=== PATIENT | female | born 1960 | race Two or more races ===

== ENCOUNTER 2017-08-24 11:55 | Emergency (ER) | payer MEDICAID ==
[~2017-08-24] VITALS: Ht 165.1 cm; Wt 68.0 kg
--- NOTE | 2017-08-24 12:30 | NUR ---
BIB SELF C/O R HAND PAIN AND SWELLING S/P TRIPPED AND FELL, AAOOX4, NAD NOTED, VSS, WAITING FOR MD SINGH.
[2017-08-24] MEDS ORDERED: IBUPROFEN 600 MG TABLET PO ONE ×2 (14:15→14:30)
[2017-08-24 14:18] VITALS: BP 122/70
--- NOTE | 2017-08-24 14:19 | NUR ---
Patient discharged to home in stable condition. Written and verbal after care instructions given. Patient verbalizes understanding of instruction. Prescription given
[2017-08-24] MEDS ORDERED: IBUPROFEN 400 MG TABLET PO ONE (16:00)
== END 2017-08-24 14:34 | disposition home or self-care (01) ==
LOC: ER 11:59
DX: S62.326A Displaced fracture of shaft of fifth metacarpal bone, right hand, initial encounter for closed fracture (principal); W01.0XXA Fall on same level from slipping, tripping and stumbling without subsequent striking against object, initial encounter; Y93.89 Activity, other specified; Y92.89 Other specified places as the place of occurrence of the external cause; Y99.9 Unspecified external cause status
CPT/HCPCS: 73130-TC; A4606; Z7610

== ENCOUNTER 2021-12-11 14:27 | Emergency (ER) | payer MEDICAID, OTHER ==
[~2021-12-11] VITALS: Ht 170.2 cm; Wt 57.6 kg
--- NOTE | 2021-12-11 14:40 | NUR ---
BIB RA102 C/O DIZZINESS AND HEAD INJURY S/P GLF LAST NIGHT. AAOX4, BREATHING EVEN AND UNLABORED, SKIN WARM AND DRY. ASSISTED TO ER BED 12, ON MONITOR. VS STABLE
[2021-12-11] MEDS ORDERED: ONDANSETRON HCL/PF 4 MG/2 ML VIAL ONE (15:13)
[2021-12-11] MEDS ORDERED: diphenhydrAMINE HCL ELIX 25 MG/10 ML UDC ONE (15:13)
[2021-12-11] MEDS ORDERED: MECLIZINE HCL 25 MG TABLET ONE (15:14)
[2021-12-11] MEDS ORDERED: diphenhydrAMINE HCL 50 MG/ML VIAL ONE (15:18)
--- NOTE | 2021-12-11 15:25 | NUR ---
PT TAKEN TO CT
--- NOTE | 2021-12-11 15:35 | NUR ---
BACK FOM CT, ON MONITOR, VS STABLE
[2021-12-11] MEDS: IV NS 0.9% 1,000 ML BAG IV ONE (15:40)
[2021-12-11] MEDS: MECLIZINE HCL 12.5 MG TABLET PO ONE (15:53)
[2021-12-11] MEDS: ONDANSETRON HCL/PF 4 MG/2 ML VIAL IVP ONE (15:53)
[2021-12-11] MEDS: diphenhydrAMINE HCL 50 MG/ML VIAL IV ONE (15:53)
[2021-12-11] MEDS ORDERED: DIAZEPAM 5 MG TABLET ONE (16:09)
[2021-12-11] MEDS ORDERED: DIAZEPAM 5 MG/ML 2 ML DISP.SYRIN ONE (16:11)
[2021-12-11] MEDS: DIAZEPAM 5 MG/ML 2 ML DISP.SYRIN IV ONE (16:19)
--- NOTE | 2021-12-11 16:21 | NUR ---
PT LAYING IN BED COMFORTABLY. VS STABLE. WILL CONTINUE TO MONITOR
[2021-12-11 16:37] LABS: BASOPHILS % (AUTO) 0.2 % (0.0-2.0); EOSINOPHILS % (AUTO) 1.1 % (0.0-6.0); HEMATOCRIT 39 % (33-45); HEMOGLOBIN 12.8 g/dL (11.5-14.8); LYMPHOCYTES # (AUTO) 1.6 K/uL (0.8-4.8); LYMPHOCYTES % (AUTO) 30.8 % (20.0-44.0); MEAN CORPUSCULAR HGB CONC 33 g/dl (31.0-36.0); MEAN CORPUSCULAR VOLUME 97 fL (82-100); MONOCYTES # (AUTO) 0.6 K/uL (0.1-1.30); MONOCYTES % (AUTO) 12.2 % (2.0-12.0); NEUTROPHILS # (AUTO) 2.8 K/uL (1.8-8.9); NEUTROPHILS % (AUTO) 55.7 % (43.0-81.0); PLATELET COUNT (AUTO) 186 K/uL (150-450); RED BLOOD CELL COUNT(AUTO) 3.99 MIL/uL (4.0-5.2)
[2021-12-11 16:59] LABS: CALCIUM, SERUM 8.6 mg/dL (8.5-10.1); CARBON DIOXIDE 22 mmol/L (21-32); CHLORIDE 106 mmol/L (98-107); CREATININE 0.6 mg/dL (0.6-1.3); GLUCOSE 86 mg/dL (74-106); POTASSIUM 3.6 mmol/L (3.5-5.1); SODIUM SERUM 143 mmol/L (136-145); UREA NITROGEN, BLOOD 16 mg/dL (7-18)
[2021-12-11 17:14] LABS: ALANINE AMINOTRANSFERASE 69 U/L (12-78); ALKALINE PHOSPHATASE 74 U/L (46-116); ASPARTATE AMINOTRANSFERASE 52 U/L (15-37); BILIRUBIN,DIRECT 0.1 mg/dL (0.0-0.2); BILIRUBIN,TOTAL 0.2 mg/dL (0.2-1.0); TOTAL PROTEIN, SERUM 6.4 g/dL (6.4-8.2)
--- NOTE | 2021-12-11 17:17 | NUR ---
PT LAYING COMFORTABLY IN BED, SPOKE TO ON PHONE
[2021-12-11] MEDS ORDERED: MECL-159 PO (17:29)
[2021-12-11] MEDS ORDERED: ONDA4TAB5 PO (17:29)
[2021-12-11] MEDS ORDERED: DIAZ5TAB PO (17:29)
--- NOTE | 2021-12-11 18:20 | NUR ---
IV removed. Catheter intact and site benign. Pressure and 4x4 applied to site. No bleeding noted.
--- NOTE | 2021-12-11 18:20 | NUR ---
Patient discharged to home in stable condition. Written and verbal after care instructions given. Patient verbalizes understanding of instruction.
[2021-12-11 18:23] VITALS: BP 130/81
== END 2021-12-11 18:23 | disposition home or self-care (01) ==
LOC: ER 14:34
DX: S00.11XA Contusion of right eyelid and periocular area, initial encounter (principal); R42 Dizziness and giddiness; I10 Essential (primary) hypertension; W18.39XA Other fall on same level, initial encounter; Y93.89 Activity, other specified; Y92.89 Other specified places as the place of occurrence of the external cause; Y99.8 Other external cause status
CPT/HCPCS: 36415; 70450; 71045; 80048; 80076; 84484; 85025; 96361; 96374; 96375; 99285; J1200; J2405; J3360; J7030; J8597; Q0163

== ENCOUNTER → 2022-11-18 | Emergency (ER) | payer OTHER ==
[~2022-11-18] VITALS: Ht 170.2 cm; Wt 59.0 kg
[~2022-11-18] MED LIST: DIAZ5TAB PO; MECL-159 PO; MORPHINE SULFATE INJ 2 MG/ML DISP.SYRIN IV ONE; MORPHINE SULFATE INJ 2 MG/ML DISP.SYRIN ONE; ONDA4TAB5 PO
[2022-11-18 00:24] VITALS: BP 119/76
--- NOTE | 2022-11-18 00:35 | NUR ---
[id number] C/O RIGHT ARM PAIN S/P FRACTURE ABOUT A WEEK AGO. PT ON SHOULDER IMMOBILIZER, AO X 4, SURINAMESE SPEAKING, FAMILY AT BEDSIDE. SEEN AND EXAMINED BY DR RAWLS, AWAITING ORDERS.
--- NOTE | 2022-11-18 00:53 | NUR ---
Immobilizer placed on right arm, taught family how to use immobilizer. Patient discharged to home in stable condition. Written and verbal after care instructions given. Patient verbalizes understanding of instruction. Patient is ambulatory with a steady gait.
== END | disposition home or self-care (01) ==
LOC: ER 00:20
DX: S42.201A Unspecified fracture of upper end of right humerus, initial encounter for closed fracture (principal); I10 Essential (primary) hypertension; E78.00 Pure hypercholesterolemia, unspecified; W01.0XXA Fall on same level from slipping, tripping and stumbling without subsequent striking against object, initial encounter; Y93.89 Activity, other specified; Y92.89 Other specified places as the place of occurrence of the external cause; Y99.8 Other external cause status
CPT/HCPCS: 99283; 29105; 96372; J2270